=== PATIENT | male | born 1955 | race African-American/Black ===

== ENCOUNTER 2025-03-12 07:17 | Emergency (ER) | payer MEDICARE ==
[~2025-03-12] VITALS: Ht 182.9 cm; Wt 79.0 kg
[2025-03-12 07:27] VITALS: TEMP 36.7; O2SAT 98
[2025-03-12] MEDS ORDERED: NAPR-679 PO (08:46)
[2025-03-12 09:23] VITALS: BP 135/61; PULSE 65; RESP 18; O2SAT 100
== END 2025-03-12 09:50 | disposition home or self-care (01) ==
LOC: ER 07:17
DX: M17.12 Unilateral primary osteoarthritis, left knee (principal); Z79.899 Other long term (current) drug therapy
CPT/HCPCS: 29505; 73560; 99283